=== PATIENT | female | born 2000 | race Caucasian/White ===

== ENCOUNTER 2022-10-18 18:31 | Outpatient (CLI) | payer OTHER ==
[~2022-10-18] VITALS: Ht 160 cm; Wt 79.4 kg
[2022-10-18] MEDS ORDERED: PRENATAL TABLE1 EAC1 PO (18:39)
[2022-10-18] MEDS ORDERED: FOLIC ACID20 MG PO (18:39)
[2022-10-18 19:02] LABS: HEMATOCRIT 31.1 % (36.0-45.00); HEMOGLOBIN 10.1 g/dL (12.0-15.00); MEAN CELL VOLUME 84.6 fL (80.00-100.00); MEAN CORPUSCULAR HEMOGLOBIN 27.4 pg (27.00-32.0); MEAN CORPUSCULAR HGB CONC 32.4 g/dl (32.0-36.0); PLATELET COUNT 204 K/uL (150-450); RED BLOOD COUNT 3.67 M/uL (4.00-6.00); RED CELL DISTRIBUTION WIDTH 13.7 % (11.5-14.5); URINE APPEARANCE Turbid; URINE BILIRRUBIN Negative (NEGATIVE); URINE BLOOD Negative; URINE COLOR Yellow; URINE GLUCOSE Negative (NEGATIVE); URINE LEUKOCYTE Large; URINE NITRATE Negative; URINE PROTEIN Negative (NEGATIVE)
[2022-10-18 19:06] LABS: URINE EPITHELIAL CELLS 92.1 uL (0.0-38.8); URINE RBC 3.3 uL (0.0-20.8); URINE WBC 1427.3 uL (0.0-23.2)
[2022-10-18 19:23] LABS: URINE BACTERIA > 9821.2 uL (0.0-1933)
== END 2022-10-19 01:47 | disposition left against medical advice (07) ==
LOC: OBS/DEL 18:31
PROVIDERS: ATTEND Student in an Organized Health Care Education/Training Program
DX: O26.893 Other specified pregnancy related conditions, third trimester (principal); R10.2 Pelvic and perineal pain; Z3A.33 33 weeks gestation of pregnancy